=== PATIENT | female | born 1965 ===

== ENCOUNTER 2023-12-17 16:55 | Emergency (ER) | payer BC ==
[2023-12-17] MEDS: Acetaminophen/HYDROcodone 325-5 MG Tab PO ONE (17:20)
[2023-12-17] MEDS: Sodium Chloride 0.9% 1,000 ML IV ONE (20:00)
[2023-12-17] MEDS: Propofol 200 MG/20 ML SDV IVPUSH ONE ×2 (20:12→20:16)
[2023-12-17] MEDS: Sodium Chloride 0.9% 10 ML Syringe FLUSH PRN (20:26)
[2023-12-17] MEDS: Sodium Chloride 0.9% 2.5 ML Syringe FLUSH PRN (20:26)
[2023-12-17] MEDS: Ketorolac 30 MG/ML SDV IVPUSH ONE (20:33)
[2023-12-17] MEDS: Ondansetron 4 MG/2 ML SDV IVPUSH ONE (20:33)
== END 2023-12-17 21:27 | disposition home or self-care (01) ==
LOC: MW.ED 16:55
DX: S43.014A Anterior dislocation of right humerus, initial encounter (principal); Z86.16 Personal history of COVID-19; Z75.8 Other problems related to medical facilities and other health care; W01.0XXA Fall on same level from slipping, tripping and stumbling without subsequent striking against object, initial encounter
CPT/HCPCS: 23650; 73030; 73080; 96361; 96374; 96375; 99283; A9270; J1885; J2405; J2704; J3490; J7030